=== PATIENT | female | born 1985 | race Caucasian/White ===

== ENCOUNTER 2019-05-28 23:26 | Emergency (ER) | payer OTHER, SELFPAY ==
--- NOTE | 2019-05-28 23:39 | ED_ITS ---
Entered by Marisa Reyna, acting as scribe for Shoaib Baker DO May 28, 2019 23:26 HPI - General Adult General: Chief complaint: Arrhythmia/Palpitations Stated complaint: LOW HEART RATE Time Seen by Provider: 05/28/19 23:34 Source: patient and family Mode of arrival: ambulatory History of Present Illness: HPI narrative: 33 y/o female presents to the ED with complaint of fluctuating HR. Pt states she has an royal on her phone that tells her what her heart rate is. [facility], it was in the 200s and then upon arrival it was in the 60s. She says it has been as low as 40s, when she is sleeping. She states she has been under increased stress lately. Pt has chiari and states she always becomes worried if her pressures change drastically. She denies any other symptoms or complaints. MD complaint: Fluctuating BP Onset (ago): hour(s) Severity: similar to prior episodes Exacerbating factors: other (stress) Associated symptoms: Deny chest pain, confusion, dyspnea, headache(s), nausea, rash, palpitations or vomiting Review of Systems Const: Denies: fever or chills Eyes: Denies: change in vision or blurry vision ENMT: Denies: painful swallowing, swelling of lips/tongue, post nasal drip or facial/sinus pain Card: Denies: chest pain, palpitations, edema, swelling of feet/ankles, shortness of breath on exertion or shortness of breath when lying down Resp: Denies: shortness of breath, productive cough, non-productive cough or wheezing GI: Denies: abdominal pain, nausea, vomiting, blood in stool or black tarry stool : Denies: painful urination, urinary frequency, urinary urgency or blood in urine Musc: Denies: neck pain, back pain, redness or joint warmth Skin/Breast: Denies: rash, itching or redness Neuro: Denies: headache, dizziness, vertigo, confusion or seizure-like activity Psych: Reports: anxiety PFSH ED PFSH: Social History Smoking and tobacco status: current every day smoker Physical Exam Const: COMMON NORMALS: alert GENERAL APPEARANCE: well developed ORIENTATION/CONSCIOUSNESS: Yes awake, Yes oriented to person, Yes oriented to place and Yes oriented to time HENMT: COMMON NORMALS: normocephalic, external ears normal, external nose normal and moist oral mucous membranes HEAD & SCALP: normocephalic; no scalp tenderness FACE & SINUS: normal facial exam NOSE: external nose normal and no nasal discharge EXTERNAL EAR: Yes external ears normal MOUTH: tongue normal TEETH & GINGIVA: no abnormal tooth and associated gingiva THROAT: posterior oropharynx normal; no peritonsillar mass Eye: COMMON NORMALS: PERRL, EOMs intact bilaterally and conjunctivae normal EYELID: eyelids normal CONJUNCTIVA: Yes conjunctivae normal PUPIL: Yes PERRL Neck/C-Spine: COMMON NORMALS: full ROM GENERAL: No tracheal deviation Chest: COMMONS NORMALS: inspection of chest normal CHEST: Yes symmetrical chest wall rise and No tenderness Resp: COMMON NORMALS: clear to auscultation bilaterally EFFORT & INSPECTION: No tachypneic, No respiratory distress, No retractions, No uses accessory muscles and No tracheal deviation AUSCULTATION: clear to auscultation bilaterally, no rhonchi, no wheezes and lung sounds not diminished Cardio: COMMON NORMALS: regular rate and regular rhythm RATE: regular rate RHYTHM: regular rhythm HEART SOUNDS: no murmurs PERIPHERAL PULSES: radial pulses present GI: INSPECTION: No abdominal distension AUSCULTATION: No hyperactive bowel sounds and No hypoactive bowel sounds PALPATION: No tender, No guarding and No rigid PERCUSSION: no dullness to percussion and no tympanic to percussion Back/Pelvis: PELVIS: Yes no pain with lateral compression Neuro: SENSORIUM/ORIENTATION: Yes alert, Yes oriented to person, Yes oriented to place and Yes oriented to time Psych: COMMON NORMALS: mental status grossly normal and speech normal SPEECH: Yes normal speech Skin: COMMON NORMALS: no rashes or lesions noted GENERAL SKIN EXAM: no rashes or lesions noted Course Vital Signs: Vital signs: Vital Signs Pulse Rate 69 05/29/19 01:32 Respiratory Rate 16 05/29/19 01:32 Blood Pressure 121/74 05/29/19 01:32 Pulse Oximetry 97 05/29/19 01:32 MDM - General Adult Lab Data: Labs: Lab Results 05/28/19 05/28/19 05/28/19 Range/Units 23:58 23:58 23:58 WBC 9.0 (4.0-10.0) 10^3/ uL RBC 4.41 (4.1-5.3) 10^6/u L Hgb 13.4 (11.5-15.3) g/dL Hct 39.5 (37.0-47.0) % MCV 89.6 (81-99) fL MCH 30.4 (28.0-34.0) pg MCHC 33.9 (30.0-36.0) g/dL RDW 12.0 L (12.1-15.1) % Plt Count 411 H (130-400) 10^3/c mm MPV 9.7 (7.4-10.4) fL Neut % (Auto) 60.5 % Lymph % (Auto) 28.2 % Concho % (Auto) 6.9 % Eos % (Auto) 3.6 % Baso % (Auto) 0.6 % Neut # (Auto) 5.4 (1.8-7.7) 10^3/u L Lymph # (Auto) 2.5 (0.8-4.8) 10^3/u L Concho # (Auto) 0.6 (0.2-0.9) 10^3/u L Eos # (Auto) 0.3 (0.0-0.8) 10^3/u L Baso # (Auto) 0.1 (0.0-0.1) 10^3/u L Nucleated RBC % (a uto) 0 % Nucleated RBCs # 0.0 /100WBC Sodium 141 (136-145) mmol/L Potassium 3.4 L (3.5-5.1) mmol/L Chloride 103 (98-107) mmol/L Carbon Dioxide 26 (22-29) mmol/L Anion Gap 15.4 (5-19) BUN 8 (6-20) mg/dL Creatinine 0.7 (0.5-0.9) mg/dL GFR Calculation 95.2 (90-130) mL/min Glucose 121 H (65-115) mg/dL Calculated Osmolal ity 289 (285-295) mOsm/k g Calcium 9.6 (8.5-10.5) mg/dL Troponin T Gen 5 n g/L 6 (0-10) ng/mL TSH 3.46 (0.27-4.20) uIU/ mL HCG, Qual (Negative) Urine Color (Yellow) Urine Appearance (CLEAR) Urine pH (5-7) Ur Specific Gravit y (1.005-1.030) Urine Protein (Negative) Urine Glucose (UA) (Normal) Urine Ketones (Negative) Urine Blood (Negative) Urine Nitrate (Negative) Urine Bilirubin (NEGATIVE) Urine Urobilinogen (Negative) mg/dL Ur Leukocyte Krystina ase (Negative) 05/28/19 05/29/19 Range/Units 23:58 00:03 WBC (4.0-10.0) 10^3/ uL RBC (4.1-5.3) 10^6/u L Hgb (11.5-15.3) g/dL Hct (37.0-47.0) % MCV (81-99) fL MCH (28.0-34.0) pg MCHC (30.0-36.0) g/dL RDW (12.1-15.1) % Plt Count (130-400) 10^3/c mm MPV (7.4-10.4) fL Neut % (Auto) % Lymph % (Auto) % Concho % (Auto) % Eos % (Auto) % Baso % (Auto) % Neut # (Auto) (1.8-7.7) 10^3/u L Lymph # (Auto) (0.8-4.8) 10^3/u L Concho # (Auto) (0.2-0.9) 10^3/u L Eos # (Auto) (0.0-0.8) 10^3/u L Baso # (Auto) (0.0-0.1) 10^3/u L Nucleated RBC % (a uto) % Nucleated RBCs # /100WBC Sodium (136-145) mmol/L Potassium (3.5-5.1) mmol/L Chloride (98-107) mmol/L Carbon Dioxide (22-29) mmol/L Anion Gap (5-19) BUN (6-20) mg/dL Creatinine (0.5-0.9) mg/dL GFR Calculation (90-130) mL/min Glucose (65-115) mg/dL Calculated Osmolal ity (285-295) mOsm/k g Calcium (8.5-10.5) mg/dL Troponin T Gen 5 n g/L (0-10) ng/mL TSH (0.27-4.20) uIU/ mL HCG, Qual Negative (Negative) Urine Color Straw (Yellow) Urine Appearance Clear (CLEAR) Urine pH 7 (5-7) Ur Specific Gravit y 1.005 (1.005-1.030) Urine Protein Neg (Negative) Urine Glucose (UA) Norm (Normal) Urine Ketones Negative (Negative) Urine Blood Neg (Negative) Urine Nitrate Negative (Negative) Urine Bilirubin Neg (NEGATIVE) Urine Urobilinogen Norm (Negative) mg/dL Ur Leukocyte Krystina ase Negative (Negative) Discharge Plan Discharge Patient Disposition: Home, Self-Care Clinical Impression: Palpitations Condition: Stable Discharge Orders: Discharge Order (Routine); Ordered 05/29/19 Ordered By: Shoaib Baker Referrals: Dickson Reddy [Family Provider] - 1-3 days Discharge Diet: Usual diet Discharge Activity: Increase activity as tolerated Patient Instructions: Palpitations (ED) Activity Restrictions/Additional Instructions: Return for chest discomfort, shortness of breath, episodes of syncope or passing out, fast or slow heart rate, other concerning symptoms. Follow-up with your doctor at the beginning of the week. He may wish to order a heart monitor test on you based on your symptoms. Discharge Date/Time: 05/29/19 01:33 Coding Level of Care Code ED Warehouse Order Filler for Chg Fwd Exam Comprehensive The documentation recorded by the Axel rodriguez Ashley, accurately reflects the service I personally performed and the decisions made by Samuel marcano Jeremy John, DO May 28, 2019 23:26
--- NOTE | 2019-05-28 23:43 | PC.NURSE ---
Patient states that she was awake at home tonight and at her royal on her phone stated that her heart rate was down to 48. Patient states she was sitting on the bed in the emergency room and her phone royal was telling her that her heart rate was in the 200s. Patients heart rate is in the 60s in the ED. Patient states she has been under stress recently and has a history of anxiety. Patient states the symptoms started with the low heart rate this after noon with the 48 heart rate starting two hours prior to arrival in the ED
--- NOTE | 2019-05-28 23:49 | XR_ITS ---
WS: [id number] XR chest 1V portable [id number] REASON FOR EXAM: palpitations FINDINGS: The heart and mediastinal interfaces normal. The lung pires are well aerated scattered granulomas are noted. The hilum and apices are normal. No osseous abnormalities. XR/XR chest 1V portable [id number] IMPRESSION: No active cardiopulmonary changes.
--- NOTE | 2019-05-28 23:50 | ECG_ITS ---
Measurements Intervals [place] Rate: 60 P: 30 CA: 178 QRS: 34 QRSD: 85 T: 0 QT: 437 QTc: 437 SINUS RHYTHM No previous ECG available for comparison Electronically Signed On 05-29-2019 20:21:37 RN PROGRESSIVE CARE by Cecilia Goodwin M.D. [email or web address]
[2019-05-29 00:08] VITALS: BP 135/86; PULSE 56; RESP 14; O2SAT 96; BMI 33.5
[2019-05-29 00:12] LABS: Basophils # 0.1 10^3/uL (0.0-0.1); Basophils % 0.6 %; Eosinophils # 0.3 10^3/uL (0.0-0.8); Eosinophils % 3.6 %; Hematocrit 39.5 % (37.0-47.0); Hemoglobin 13.4 g/dL (11.5-15.3); Lymphocytes # 2.5 10^3/uL (0.8-4.8); Lymphocytes % 28.2 %; Mean Corpuscular HGB Conc 33.9 g/dL (30.0-36.0); Mean Corpuscular Hemoglobin 30.4 pg (28.0-34.0); Mean Corpuscular Volume 89.6 fL (81-99); Mean Platelet Volume 9.7 fL (7.4-10.4); Monocytes # 0.6 10^3/uL (0.2-0.9); Monocytes % 6.9 %; Neutrophils # 5.4 10^3/uL (1.8-7.7); Neutrophils % 60.5 %; Nucleated Red Blood Cells % 0 %; Platelet Count 411 10^3/cmm (130-400); Red Blood Count 4.41 10^6/uL (4.1-5.3)
[2019-05-29 00:16] LABS: Add Urine Microscopic? NO
[2019-05-29 00:19] LABS: Bilirubin Urine Neg (NEGATIVE); Blood Urine Neg (Negative); Glucose Urine UA Norm (Normal); Ketones Urine Negative (Negative); Leukocyte Esterase Urine Negative (Negative); Nitrate Urine Negative (Negative); Protein Urine Neg (Negative); Specific Gravity, Urine 1.005 (1.005-1.030); Urine Appearance Clear (CLEAR); Urine Color Straw (Yellow); Urobilinogen Urine Norm (Negative); pH Urine 7 (5-7)
[2019-05-29 00:27] LABS: Troponin T (5th) Once 6 ng/mL (0-10)
[2019-05-29 00:28] LABS: HCG, Serum Qual Negative (Negative)
[2019-05-29 00:35] LABS: Anion Gap 15.4 (5-19); Blood Urea Nitrogen 8 mg/dL (6-20); Calcium 9.6 mg/dL (8.5-10.5); Carbon Dioxide 26 mmol/L (22-29); Chloride 103 mmol/L (98-107); Glomerular Filtration Rate 95.2 mL/min (90-130); Glucose 121 mg/dL (65-115); Osmolality Calculated 289 mOsm/kg (285-295); Potassium 3.4 mmol/L (3.5-5.1); Sodium 141 mmol/L (136-145); Thyroid Stimulating Hormone 3.46 uIU/mL (0.27-4.20)
[2019-05-29 01:00] VITALS: BP 115/78; PULSE 63; RESP 16; O2SAT 94
[2019-05-29 01:32] VITALS: BP 121/74; PULSE 69; RESP 16; O2SAT 97
== END 2019-05-29 01:33 | disposition home or self-care (01) ==
PROVIDERS: Emergency Provider Emergency Medicine; Family Provider Family Medicine
DX: R00.2 Palpitations (principal); F17.200 Nicotine dependence, unspecified, uncomplicated
CPT/HCPCS: 71045; 80048; 81003; 84443; 84484; 84703; 85025; 93005; 99282; 99283; A9270